=== PATIENT | female | born 1985 | race Caucasian/White ===

== ENCOUNTER → 2017-06-02 | Emergency (ER) | payer MEDICAID ==
[~2017-06-02] VITALS: Ht 160 cm; Wt 67.9 kg
[~2017-06-02] MED LIST: NO HOME MEDS; PROC-8 PO; SULF1TAB49 PO; TETanus/Pertussis (Acell)/Diphther VAC/PF (Tdap-Adult) 0.5ml syringe IM ONE; mupirocin 2% ointment 22GM TP ONE; sulfamethoxazole/trimethoprim DS (800/160mg) tablet PO ONE
[2017-06-02 07:55] VITALS: BP 118/76
== END | disposition home or self-care (01) ==
LOC: ER 07:22
DX: L02.414 Cutaneous abscess of left upper limb (principal); L03.114 Cellulitis of left upper limb; G89.29 Other chronic pain; F15.10 Other stimulant abuse, uncomplicated; F11.10 Opioid abuse, uncomplicated; Z86.14 Personal history of Methicillin resistant Staphylococcus aureus infection; Z98.890 Other specified postprocedural states
CPT/HCPCS: 10060; 90471; 90715; 99283; A6266; A6446; A6449

== ENCOUNTER 2017-06-06 04:00 | Emergency (ER) | payer MEDICAID ==
[~2017-06-06] VITALS: Ht 160 cm; Wt 65.9 kg
[~2017-06-06 04:00] MED LIST changes: -TETanus/Pertussis (Acell)/Diphther VAC/PF (Tdap-Adult) 0.5ml syringe IM ONE; -mupirocin 2% ointment 22GM TP ONE; -sulfamethoxazole/trimethoprim DS (800/160mg) tablet PO ONE
[2017-06-06 04:34] VITALS: BP 128/75
== END 2017-06-06 04:36 | disposition home or self-care (01) ==
LOC: ER 04:02
DX: Z48.01 Encounter for change or removal of surgical wound dressing (principal); L02.414 Cutaneous abscess of left upper limb; G89.29 Other chronic pain; F15.10 Other stimulant abuse, uncomplicated; F11.10 Opioid abuse, uncomplicated; Z86.14 Personal history of Methicillin resistant Staphylococcus aureus infection
CPT/HCPCS: 99282; A6255

== ENCOUNTER 2017-12-22 13:11 | Emergency (ER) | payer MEDICAID ==
[~2017-12-22] VITALS: Ht 160 cm; Wt 69.0 kg
[~2017-12-22 13:11] MED LIST changes: -SULF1TAB49 PO
[2017-12-22] MEDS ORDERED: sulfamethoxazole/trimethoprim DS (800/160mg) tablet PO ONE (13:40)
[2017-12-22] MEDS ORDERED: cephalexin 500mg capsule PO ONE (13:40)
[2017-12-22] MEDS ORDERED: LIDOcaine 1.5% w/epinephrine 1:200,000 5ml ampul IJ ONE (13:40)
[2017-12-22] MEDS ORDERED: SULF1TAB49 PO (13:44)
[2017-12-22] MEDS ORDERED: CEPH-572 PO (13:44)
[2017-12-22 14:23] VITALS: BP 137/81
== END 2017-12-22 14:34 | disposition home or self-care (01) ==
LOC: ER 13:11
DX: L02.511 Cutaneous abscess of right hand (principal); F15.90 Other stimulant use, unspecified, uncomplicated; F11.90 Opioid use, unspecified, uncomplicated; G89.29 Other chronic pain; Z86.14 Personal history of Methicillin resistant Staphylococcus aureus infection; Z79.899 Other long term (current) drug therapy; Z56.0 Unemployment, unspecified
CPT/HCPCS: 26010; 99283; A6255; A6266; A6449; J3490

== ENCOUNTER 2018-06-24 15:06 | Emergency (ER) | payer MEDICAID, OTHER ==
[~2018-06-24] VITALS: Ht 160 cm; Wt 75.4 kg
[2018-06-24 15:16] VITALS: BP 148/73
[2018-06-24] MEDS ORDERED: ketorolac trometh inj. 60 MG/2 ML VIAL IM ONE (16:20)
[2018-06-24] MEDS ORDERED: CYCL-1 PO (16:22)
== END 2018-06-24 16:39 | disposition home or self-care (01) ==
LOC: ER 15:07
DX: S13.4XXA Sprain of ligaments of cervical spine, initial encounter (principal); R51 Headache; G89.29 Other chronic pain; F15.10 Other stimulant abuse, uncomplicated; F11.10 Opioid abuse, uncomplicated; Z79.899 Other long term (current) drug therapy; V49.49XA Driver injured in collision with other motor vehicles in traffic accident, initial encounter; Y93.89 Activity, other specified; Y92.89 Other specified places as the place of occurrence of the external cause; Y99.8 Other external cause status
CPT/HCPCS: 96372; 99283; J1885

== ENCOUNTER 2020-09-12 03:00 | Emergency (ER) | payer OTHER ==
[~2020-09-12] VITALS: Ht 160 cm; Wt 81.8 kg
[~2020-09-12 03:00] MED LIST changes: +CYCL-1 PO
[2020-09-12 03:06] VITALS: BP 151/81
[2020-09-12] MEDS ORDERED: clindamycin 300mg/D5W 50mL 50 ML IV ONE (03:30)
[2020-09-12] MEDS ORDERED: acetaminophen 325mg tablet PO ONE (03:30)
[2020-09-12] MEDS ORDERED: ketorolac trometh. 30mg/ml inj. IV ONE (03:30)
[2020-09-12] MEDS ORDERED: iohexol 300mg/ml 100ml inj. ONE (03:34)
[2020-09-12 04:36] LABS: URINE HCG NEGATIVE (NEG)
[2020-09-12] MEDS ORDERED: CLIN150C8 PO (05:14)
== END 2020-09-12 05:22 | disposition home or self-care (01) ==
LOC: ER 03:01
DX: K08.89 Other specified disorders of teeth and supporting structures (principal); R59.1 Generalized enlarged lymph nodes; R51.9 Headache, unspecified; G89.29 Other chronic pain; F15.90 Other stimulant use, unspecified, uncomplicated; F11.90 Opioid use, unspecified, uncomplicated; Z86.14 Personal history of Methicillin resistant Staphylococcus aureus infection; Z98.890 Other specified postprocedural states; Z72.89 Other problems related to lifestyle; Z79.2 Long term (current) use of antibiotics
CPT/HCPCS: 70482; 81025; 96365; 96375; 99285; J1885; Q9967; J3490

== ENCOUNTER 2021-10-15 17:39 | Emergency (ER) | payer MEDICAID ==
[~2021-10-15 17:39] MED LIST changes: +CLIN150C8 PO
== END 2021-10-15 20:58 | disposition left against medical advice (07) ==
LOC: ER 18:27
DX: L08.9 Local infection of the skin and subcutaneous tissue, unspecified (principal); Z53.21 Procedure and treatment not carried out due to patient leaving prior to being seen by health care provider

== ENCOUNTER 2024-07-30 17:23 | Outpatient (CLI) | payer MEDICAID ==
[~2024-07-30 17:23] MED LIST changes: +CLIN-214 PO; -CLIN150C8 PO
== END 2024-07-30 23:59 | disposition home or self-care (01) ==
LOC: RAD 17:23
PROVIDERS: ATTEND Physician Assistant
DX: F11.20 Opioid dependence, uncomplicated (principal)
CPT/HCPCS: 93005